=== PATIENT | male | born 1950 | race Caucasian/White ===

== ENCOUNTER 2023-09-21 15:53 | Outpatient (CLI) | payer MEDICARE, SELFPAY ==
[2023-09-21 16:17] LABS: Basophils # 0.1 K/mm3 (0-0.2); Basophils % 1.4 % (0.1-2.0); Eosinophils # 0.2 K/mm3 (0.0-0.4); Hematocrit 40.5 % (42.0-52.0); Hemoglobin 13.6 g/dL (14.1-18.0); Lymphocytes % 25.6 % (10-50); Mean Corpuscular HGB Conc 33.7 g/dL (31.8-35.4); Mean Corpuscular Hemoglobin 29.5 pg (27.0-31.2); Mean Corpuscular Volume 87.7 fl (80-94); Mean Platelet Volume 8.4 fl (7.4-10.4); Monocytes # 0.5 K/mm3 (0.1-1.0); Monocytes % 6.5 % (1.7-9.3); Neutrophils % 63.5 % (37.0-80.0); Platelet Count 260 K/mm3 (142-424); Red Blood Count 4.62 M/mm3 (4.60-6.20); White Blood Count 7.9 K/mm3 (4.8-10.8)
[2023-09-21 16:36] LABS: Chloride 106 mmol/L (98-107); Potassium 4.2 mmoL/L (3.5-5.1); Sodium 143 mmol/L (136-145)
[2023-09-21 16:38] LABS: Alanine Aminotransferase 30 U/L (12-78); Alkaline Phosphatase 90 U/L (38-126); Anion Gap 11.2 mEq/L (5-15); Aspartate Amino Transferase 38 U/L (17-59); Bilirubin,Direct 0.3 mg/dl (0.0-0.4); Bilirubin,Indirect 0.4 mg/dL (0.0-0.9); Bilirubin,Total 0.7 mg/dl (0.2-1.3); Bilirubin,Unconjugated 0.4 mg/dL (0.0-1.1); Blood Urea Nitrogen 12 mg/dl (9-20); Carbon Dioxide 30 mmol/L (22.0-30.0); Estimated Glomerular Filt Rate 60 ml/min (>60); GFR (African American) 72 ML/MIN (>60)
[2023-09-21 16:39] LABS: Albumin Level 4.4 g/dl (3.5-5.0); Calcium 10.2 mg/dl (8.4-10.2); Chol/HDL Ratio 6.2 (1-3.5); Cholesterol 240 mg/dl (140-200); Glucose 99 mg/dl (74-100); HDL Cholesterol 39 mg/dl (40-60); Magnesium 2.3 mg/dl (1.6-2.3); Total Protein,Serum 7.1 g/dl (6.3-8.2); Triglycerides 91 mg/dl (30-150); VLDL Cholesterol 18 mg/dL (0-40)
[2023-09-21 16:56] LABS: Direct LDL Cholesterol 147.65 mg/dL (100-129); Free T4 (Free Thyroxine) 1.05 ng/dl (0.78-2.19)
[2023-09-21 17:09] LABS: Thyroid Stimulating Hormone 4.32 uIU/mL (0.465-4.68)
== END 2023-09-21 23:59 ==
LOC: LAB 15:56
PROVIDERS: PCP Family Medicine; Visit Provider Nurse Practitioner
DX: R00.0 Tachycardia, unspecified (principal); I10 Essential (primary) hypertension; R94.31 Abnormal electrocardiogram [ECG] [EKG]; E78.00 Pure hypercholesterolemia, unspecified; K11.1 Hypertrophy of salivary gland; I77.9 Disorder of arteries and arterioles, unspecified; E78.5 Hyperlipidemia, unspecified; Z86.73 Personal history of transient ischemic attack (TIA), and cerebral infarction without residual deficits
CPT/HCPCS: 36415; 80048; 80061; 80076; 83735; 84439; 84443; 85025; 93270

== ENCOUNTER 2023-09-29 10:50 | Outpatient (CLI) | payer MEDICARE, SELFPAY ==
--- NOTE | 2023-09-29 10:50 | CA_ITS ---
APPROVED REPORT EXAM: Comprehensive 2D, Doppler, and color-flow Echocardiogram [employer] Dba: Arlette Lehman CRT Ht: 5 ft 8 in Wt: 221lbs BSA: 2.13 BP: 154/79 mmHg Indications: Abnormal ECG, CVA/TIA, Hyperlipidemia, Hypertension/HDD 2D Dimensions Left Atrium 3.75 cm EF AP4 47.40 % LVOT 1.93 cm (M/F) 1.5-2.5 GL Strain -19.6 % M-Mode Dimensions RVDd 3.04 cm (0.9-2.6) LVDd 4.56 cm (3.5-5.7) Ao Diam 4.21 cm (2.0-3.7) LVDs 3.35 cm (3.5-5.7) IVSd 1.52 cm (0.6-1.1) PWd 0.61 cm (0.6-1.1) EF (Teich) 52.00% FS 26.50% EDV (Teich) 95.40 mL TAPSE 2.34 (<1.7) ESV (Teich) 45.80 mL LV Diastology E Decel Time 256 (160-240 msec) E/A Ratio 0.74 MED E' 6.2 (>= 7 cm/sec) MED A' 9.10 cm/s E'/MED E' Ratio 8.29 (<= 14) LAT E' 10.4 (>= 10 cm/sec) LAT A' 15.70 cm/s E/LAT E' Ratio 4.94 (<= 14) Aortic Valve AoV Peak Huang. 119.0 (50-130 cm/s) AO Peak GR. 5.80 mmHg Mitral Valve MV E Max Huang. 51.0 (40-130 cm/s) MV A Velocity 69.0 (40-130 cm/s) E/A Ratio 0.74 MV Decel. Time 256 (160-240 ms) Tricuspid Valve TR P. Velocity 287.00 cm/s RAP Estimate 10.00 mmHg RVSP 43.00 mmHg Left Ventricle The left ventricle is normal size. The left ventricular systolic function is low normal There is increased left ventricular wall thickness. There is borderline global hypokinesis present. No regional wall motion abnormalities are noted. Transmitral Doppler flow pattern suggests impaired LV relaxation. LVEF is 50%. Right Ventricle The right ventricle is normal size. The right ventricular systolic function is normal. Atria The left atrium size is normal. The right atrium size is normal. There is no Doppler evidence of interatrial shunt. The aortic valve is mildly thickened. Aortic Valve There is no aortic valvular stenosis. No aortic regurgitation is present. Mitral Valve The mitral valve is normal in structure. No evidence of mitral valve stenosis. Trace mitral regurgitation. Tricuspid Valve The tricuspid valve leaflets are thin and pliable. Trace tricuspid regurgitation. There is insufficient TR jet to estimate RVSP. Pulmonic Valve The pulmonary valve is normal in structure. Trace pulmonic regurgitation. Great Vessels The aortic root is normal in size. The ascending aorta is normal in size. IVC is normal in size and collapses >50% with inspiration. Pericardium There is no pericardial effusion. Other Information Study Quality: Fair Conclusion Low normal LV systolic function (LVEF 50%). No significant valvular stenosis or regurgitation. Electronically signed by : Kaylin Peralta MD 09/30/2023 14:00:22
--- NOTE | 2023-09-29 11:34 | NM_ITS ---
APPROVED REPORT Exam: Nuclear Stress Test Indication: hypertension Patient Location: Outpatient Stress Tech: Kassi Rose [place] Tech:Sonia DyeELODIAT, RT (R)(N) Ht: 5 ft 8 in Wt: 221 lbs HR: 78 bpm BP: 135/74 mmHg BSA: 2.13 m2 Rhythm: NSR TID: 1.39 BMI: 33.5 History: hypertension Procedure: Patient received 0.4 mg of intravenous Lexiscan, resting heart rate 78 bpm, resting blood pressure 135/74 mmHg, with Lexiscan maximum heart rate achieved was 116 bpm which is 85 % of the maximum predicted heart rate and blood pressure was 143/71 mmHg. With Lexiscan, patient denied any complaint of chest pain. Cardiac Stress and Resting SPECT Images: Cardiac Stress and Resting SPECT images were obtained using technetium 99m Myoview 32.4 mCi stress and 10.80 mCi at rest. Technically difficult study due to significant soft tissue overlap with the LV borders. Resting and stress imaging in supine and prone positions demonstrate no definite evidence of fixed or reversible perfusion defects. There is increased transient ischemic dilatation ratio (TID 1.39), suggestive of possible multivessel disease or balanced ischemia. Gated imaging demonstrates mild reduction global LV systolic function. LVEF is calculated at 45%. Conclusion: Technically difficult study. No definite evidence of fixed or reversible perfusion defects. There is increased transient ischemic dilatation ratio (TID 1.39), suggestive of possible multivessel disease or balanced ischemia. Gated imaging demonstrates mild reduction global LV systolic function. LVEF is calculated at 45%. Electronically signed by : Kaylin Peralta MD 09/30/2023 11:26:49
[2023-09-29] MEDS: ISOTOPE MYOVIEW (PER STUDY) 1 DOSE IV (13:15)
[2023-09-29] MEDS: SODIUM CHLORIDE 0.9% 10ML SYR (RAD ONLY) 10 ML IV ×2 (13:15)
[2023-09-29] MEDS: REGADENOSON 0.4MG/5ML SYRINGE 0.400000000000000022 MG IV (13:15)
--- NOTE | 2023-09-29 16:00 | CA_ITS ---
APPROVED REPORT Exam: Pharmacologic Technologist: Kassi Rose Ht: 5 ft 8 in Wt: 221 lbs BSA: 2.13 m2 HR: 77 bpm BP: 135/74 mmHg Rhythm: NSR Indications: G45.9 Medical History Medications: Aspirin,,,,, RoSUVASTATIN,,,,, Lisinopril-HCTZ,,,,, Stress Test Details Test: LEXISCAN HR Resting HR: 78 bpm Max Heart Rate (APMHR): 149 bpm Max HR Achieved: 116 bpm Target HR (85% APMHR): 127 bpm % of APMHR: 78 Recovery HR: 94 bpm BP Resting BP: 135.0/74.0 mmHg Max BP: 143.0/71.0 mmHg Recovery BP: 136.0/66.0 mmHg ECG Resting ECG: Sinus rhythm, non-specific T-wave changes Stress ECG: No ST changes Arrhythmia: None Clinical Exercise duration: 04:00 min Highest Stage Achieved: Stress ECG Conclusion Symptoms: Dyspnea Arrhythmias/Ectopy: PAC ST-T Changes: No significant ST changes Conclusion: EKG unremarkable due to Lexiscan infusion. Myoview images reported separately. Test Summary REST . . . . . . . Resting REST 02:41 . . 78 . 135/ 74 . . Stage 1 . . . . . . . Myoview Injected Stage 1 01:00 . . 102 . . . . Stage 2 01:00 . . 114 . 115/ 65 . . Stage 3 01:00 . . 107 . 143/ 71 . . Stage 4 01:00 . . 98 . 129/ 75 . Stop exercise at 04:00 RECOVERY 01:00 . . 100 . 131/ 67 . . RECOVERY 02:00 . . 87 . 128/ 73 . . RECOVERY 02:51 . . 89 . 136/ 66 . . Electronically signed by : Kaylin Peralta MD 09/30/2023 11:24:43
== END 2023-09-29 23:59 ==
LOC: RT 10:50
PROVIDERS: PCP Family Medicine; Visit Provider Nurse Practitioner
DX: I10 Essential (primary) hypertension (principal); R00.0 Tachycardia, unspecified; R94.31 Abnormal electrocardiogram [ECG] [EKG]
CPT/HCPCS: 78452; 93017; 93018; 93306; A9502; J2785

== ENCOUNTER 2023-10-02 14:26 | Outpatient (CLI) | payer MEDICARE, SELFPAY ==
--- NOTE | 2023-10-02 14:27 | MR_ITS ---
FINAL REPORT TECHNIQUE: Multiplanar MR, without and with contrast administration CLINICAL HISTORY: tia. EPISODE 2 WEEKS AGO HIGH BLOOD PRESSURE AND SLURRED SPEECH. WEAKNESS IN LEG. FINDINGS: There is rather extensive abnormal signal in the periventricular and subcortical white matter bilaterally. 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 On the diffusion-weighted images, there is a 10 mm focus of abnormal restricted diffusion in the left basal ganglia. Finding is best seen on image 13. There is corresponding decreased signal on the ADC map images consistent with an acute or subacute ischemic infarct. There is enhancement of the focus in the left basal ganglia, probably related to subacute luxury perfusion. In addition, there is a linear focus of restricted diffusion in the left frontal deep white matter with corresponding decreased signal on the ADC map images. Findings are consistent with subacute ischemia. There is an old right cerebellar infarct. Ventricles are normal. No edema or hemorrhage is seen. Major vessel flow-voids are intact. IMPRESSION: Acute/subacute ischemia in the left basal ganglia and deep white matter of the left frontal lobe. Findings were reported to Dr. Arroyo on 10/02/2023 at 4:27 p.m. Reviewed, Interpreted and Dictated by Cordell Chin MD Transcribed by Lizbeth Pope Authenticated and . [facility] [place]
[2023-10-02] MEDS: SODIUM CHLORIDE 0.9% 10ML SYR (RAD ONLY) 10 ML IV (15:21)
[2023-10-02] MEDS: GADOTERIDOL INJ 17ML SYRINGE 20 ML IV (15:21)
== END 2023-10-02 23:59 ==
LOC: RAD 14:27
PROVIDERS: PCP Family Medicine; Visit Provider Nurse Practitioner
DX: R47.01 Aphasia (principal); R53.1 Weakness
CPT/HCPCS: 70553; A9576

== ENCOUNTER 2023-11-05 08:53 | Outpatient (CLI) | payer MEDICARE, SELFPAY ==
--- NOTE | 2023-11-05 08:53 | CT_ITS ---
APPROVED REPORT Patient Resource Specialist: CLINICAL INDICATION Chest Pain TECHNIQUE Image Acquisition: A 128 slice MDCT scanner ([employer] View) was used for data acquisition. A noncontrast coronary calcium scan was performed. A CT attenuation threshold of 130 Hounsfield units (HU) was used for the detection of calcium in contiguous voxels of 1 sq mm in area to be counted as individual lesions. Bolus tracking in the ascending aorta with a threshold of 180 HU was performed. Immediately afterwards, ECG synchronized cardiac CT was then performed from the cardiac base to apex using retrospective gating with ECG tube current modulation. A total of 85 mL of Isovue 370 mg/mL contrast medium was administered at 5 mL/sec followed by a saline flush using a biphasic injection protocol. A tube voltage of 120 KVp was used. The patient received the following medications prior to the cardiac CT. 50 mg of oral metoprolol 15 mg of oral ivabradine 0.8 mg of sublingual nitroglycerin The average heart rate at the time of acquisition was 54 bpm and regular. Image Reconstruction Transaxial images were reconstructed at 0.67 mm slide thickness. Data was reviewed interactively on an advanced workstation capable of 2 and 3-dimensional displays in all conventional reconstruction formats, including multiplanar reformations, maximum intensity projections, curved multiplanar reformations, and volume rendered reconstructions. When applicable, selected routine images describing the relevant coronary anatomy and pathology were saved and sent to PACS. Complications None Technical Quality Overall image quality was suboptimal due to significant motion and step artifact. Coronary artery opacification was adequate. Total DLP (Dose-Length Product) is 1285.6 mGy-cm. The reported value represents the total of one or more individual components during the CT acquisition of this date and at this time, and as such, the same value may appear in more than one CT report depending on the interpreting/reporting physicians. COMPARISON None FINDINGS CT Coronary Calcium Scoring LMA (Left Main Artery) = 113 LAD (Left Anterior Descending) = 158 LCX (Left Coronary Circumflex) = 24 RCA (Right Coronary Artery) = 129 Total Calcium Score = 424 using the AJ-130 method. The observed calcium score of 424 is at 68th percentile for subjects of the same age, sex, and race/ethnicity. The interpretation of the calcium heart score is based on the following continuum*: 0 = no calcified plaque detected (risk of coronary artery disease is very low ??? less than 5%) 1-10 = calcium detected in extremely minimal levels (risk of coronary diseases is still low ??? less than 10%) 11-100 = mild levels of plaque detected with certainty (mild or minimal narrowing of heart arteries is likely) 101-400 = definite,at least moderate levels of plaque detected (relatively high risk of a heart attack within 3-5 years) >401-999 = extensive levels of plaque detected (high risk of heart attack, high levels of vascular disease are present, high likelihood of at least one significant coronary narrowing) *The calcium heart score quantifies the burden of coronary calcification/plaque in the coronary arteries. The calcium heart score is not able to evaluate the presence or burden of non-calcified (i.e. soft) plaque. There is also calcification noted in the aortic root, aortic valve, and the ascending thoracic aorta. Coronary CT Angiography The coronary arterial system is right dominant. Quantitative Stenosis Grading: Left Main (LM): The left main originates normally from the left sinus of Valsalva. The LM bifurcates into the left anterior descending artery and left circumflex artery. There is calcification in the distal LM, with < 30% luminal stenosis. Left Anterior Descending (LAD) and Diagonal Branches: The LAD gives off 2 diagonal branch(es). There is mixed calcified/noncalcified plaque noted in the proximal LAD, with up to 70???90% luminal stenosis. There is no evidence of LAD-myocardial bridge. Ramus-intermedius (RI): There is calcification in the RI, with no luminal stenosis. Left Circumflex (LCX) and Obtuse Marginals (OM): The LCX gives off 1 Obtuse Marginal (OM) branch(es). There is calcified plaque in the LCx, with no luminal stenosis. Right Coronary Artery (RCA): Technically difficult to analyze due to significant motion. The RCA originates normally from the right sinus of Valsalva. The RCA gives off a posterior descending artery (PDA) and posterolateral (PL) branches. There is calcified plaque noted in the proximal RCA, but with no significant luminal stenosis in the visualized segments. Non-Coronary Cardiac Findings: Analysis of the left ventricular (LV) structure and function was performed after 3-D reconstruction of the LV from axial images, with user-corrected automatic contouring for assessment of LV volumes and user-defined reconstruction from oblique planes for measurement of 3-D cardiac structure and function. -The left ventricle systolic function is moderately reduced. There is severe hypokinesis of the distal anterior and anteroseptal LV casillas. -There is incomplete opacification of the distal LA appendage. This likely represents poor contrast flow distally, but true perfusion defect cannot be entirely ruled out. Two right pulmonary veins and two left pulmonary veins drain normally into the left atrium. -No pericardial thickening or calcification. -Central and branch pulmonary arteries in the [id number]-helm are unremarkable. -Thoracic aorta within the visualized thoracic aortic-branches in the [id number] is unremarkable. Extracardiac Structures No significant extra-cardiac findings. Note, however, that this study is focused on the cardiac findings. IMPRESSION -Overall image quality was suboptimal due to significant motion and step artifact in the RCA. A segment of the proximal RCA is not well-visualized on the CCTA. -Presence of coronary calcification with an Agatston score = 424 using the AJ-130 method. -The observed calcium score of 424 is at 68th percentile for subjects of the same age, sex, and race/ethnicity. -Possible significant flow-limiting atherosclerosis of the proximal LAD. -CAD-RADS 4A. Management recommendations per ACC/AHA guidelines*, as clinically appropriate. -The left ventricle systolic function is moderately reduced. There is severe hypokinesis of the distal anterior and anteroseptal LV casillas. *Recommendations: CAD RADS 0: Reassurance. Consider non-atherosclerotic causes of chest pain. CAD RADS 1: Consider non-atherosclerotic causes of chest pain. Consider preventive therapy and risk factor modification. CAD RADS 2: Consider non-atherosclerotic causes of chest pain. Consider preventive therapy and risk factor modification, particularly for patients with nonobstructive plaque in multiple segments. CAD RADS 3: Consider further functional testing. Consider symptom-guided anti-ischemic and preventive pharmacotherapy as well as risk factor modification per published guideline statements. CAD RADS 4A: Consider further functional testing or invasive coronary angiography with revascularization per published guideline statements. Consider symptom-guided anti-ischemic and preventive pharmacotherapy as well as risk factor modification per published guideline statements. CAD RADS 4B: Invasive coronary angiography recommended with revascularization per published guideline statements. Consider symptom-guided anti-ischemic and preventive pharmacotherapy as well as risk factor modification per published guideline statements. CAD RADS 5: Consider invasive angiography and/or viability assessment with revascularization per published guideline statements. Consider symptom-guided anti-ischemic and preventive pharmacotherapy as well as risk factor modification per published guideline statements. CRITICAL RESULT None COMMUNICATION Per this written report The coronary and cardiac findings of this CCTA were reviewed, reported, and signed by Prince Peralta MD (Mechanic Senior) Conclusion Electronically signed by : Kaylin Peralta MD 11/10/2023 13:11:15
[2023-11-05 09:11] VITALS: BMI 31.6
[2023-11-05 09:16] VITALS: BP 124/72; PULSE 71; RESP 18; TEMP 36.3; O2SAT 99
[2023-11-05] MEDS: IVABRADINE HCL 7.5MG TABLET *IVABRADINE+METOPROLOL REGIMINE 15 MG PO (09:29)
[2023-11-05] MEDS: METOPROLOL TARTRATE 50MG TABLET *IVABRADINE+METOPROLOL REGIMINE 50 MG PO (09:30)
[2023-11-05 09:45] LABS: Chloride 105 mmol/L (98-107); Sodium 140 mmol/L (136-145)
[2023-11-05 09:46] LABS: Potassium 3.8 mmoL/L (3.5-5.1)
[2023-11-05 09:49] LABS: Anion Gap 10.8 mEq/L (5-15); Blood Urea Nitrogen 24 mg/dl (9-20); Calcium 10.1 mg/dl (8.4-10.2); Carbon Dioxide 28 mmol/L (22.0-30.0); Creatinine Clearance Estimated 48 mL/min (50-200); Estimated Glomerular Filt Rate 35 ml/min (>60); GFR (African American) 42 ML/MIN (>60); Glucose 111 mg/dl (74-100)
[2023-11-05] MEDS: 0.9 % SODIUM CHLORIDE 1000ML 1,000 ML 999 ML IV (10:06)
[2023-11-05 10:26] VITALS: BP 157/91; PULSE 59; RESP 16; O2SAT 99
[2023-11-05] MEDS: NITROGLYCERIN 0.4MG SL TABLET 0.800000000000000044 MG SL (10:26)
[2023-11-05 10:29] VITALS: BP 117/65; PULSE 54; RESP 17; O2SAT 98
[2023-11-05 10:32] VITALS: BP 104/56; PULSE 60; RESP 18; O2SAT 99
[2023-11-05 10:45] VITALS: BP 113/62; PULSE 55; RESP 16; O2SAT 97
[2023-11-05] MEDS: 0.9 % SODIUM CHLORIDE 50 ML VIAL IV (10:50)
[2023-11-05] MEDS: SODIUM CHLORIDE 0.9% 10ML SYR (RAD ONLY) 10 ML IV (10:51)
[2023-11-05] MEDS: IOPAMIDOL-370 (76%);100ML BOTTLE 80 ML IV (10:52)
[2023-11-05 11:15] VITALS: BP 115/63; PULSE 50; RESP 18; O2SAT 98
== END 2023-11-05 11:36 | disposition home or self-care (01) ==
PROVIDERS: PCP Family Medicine; Visit Provider Nurse Practitioner
DX: I51.7 Cardiomegaly (principal); I10 Essential (primary) hypertension; R06.09 Other forms of dyspnea; R94.31 Abnormal electrocardiogram [ECG] [EKG]; R00.0 Tachycardia, unspecified; R07.89 Other chest pain
CPT/HCPCS: 75571; 75574; 80048; Q9967